=== PATIENT | male | born 1950 | race Caucasian/White ===

== ENCOUNTER 2016-08-13 11:24 | Emergency (ER) | payer OTHER ==
--- NOTE | 2016-08-13 11:56 | ED.PDOC ---
History of Present Illness - General Chief Complaint: Trauma Stated Complaint: Fell out of bed Time Seen by Provider: 08/13/16 11:52 Source: patient, RN notes reviewed, Vital Signs reviewed, family Exam Limitations: no limitations - History of Present Illness Initial Comments: About 4am this morning patient fell out of bed injuring his R face, shoulder, ribs and back. Unsure if he hit the nightstand on the way down. Sister reports he has been acting like himself. No weakness, numbness or tingling. + CALLAHAN R forehead. He had another recent fall with rib and knee injuries. No SOB, or abdominal complaints. Occurred: this morning Severity: moderate Pain Location: head, face, chest, back, lower extremity Method of Injury: fall Improving Factors: rest Worsening Factors: movement Loss of Consciousness: no loss of consciousness Associated Symptoms (Fall): chest pain, headache Allergies/Adverse Reactions: Allergies Sulfa Antibiotics Allergy (Verified 08/13/16 12:22) Home Medications: Ambulatory Orders BuPROPion XL [Wellbutrin XL] 150 mg PO DAILY 08/13/16 DULoxetine HCL [Cymbalta] 60 mg PO DAILY 08/13/16 Diazepam [Valium] 10 mg PO BID 08/13/16 HYDROcodone 10MG/APAP 325MG [Almond 10/325] 1 tab PO Q4HR 08/13/16 Tamsulosin [Flomax] 0.4 mg PO DAILY 08/13/16 traZODone HCL [Desyrel] 200 mg PO DAILY 08/13/16 Review of Systems - Review of Systems Constitutional: States: no symptoms reported EENTM: States: see HPI, nose pain. Denies: eye pain, blurred vision, tearing, double vision, ear pain, ear discharge, nose congestion, throat pain, mouth pain Respiratory: States: no symptoms reported. Denies: cough, short of breath Cardiology: States: chest pain - R side. Denies: palpitations, syncope Gastrointestinal/Abdominal: States: no symptoms reported Genitourinary: States: no symptoms reported Musculoskeletal: States: see HPI Skin: States: other - Abrasion R cheek Neurological: States: headache. Denies: numbness, paresthesia, tingling, tremors, weakness Family Medical History - Family History Grandparents Family History: Unknown Physical Exam - Physical Exam General Appearance: Alert, Comfortable, No apparent distress, Unkempt, Well Hydrated, Well Nourished Head Injury: ecchymosis - R forehead., swelling - R forehead, tenderness - R forehead Eye Exam: bilateral normal ENT Exam: hearing grossly normal, no dental injury, other - swelling, tenderness with large abrasion over R cheek, No TMJ tenderness but tender along R jawline. No limitation of jaw movement, Ears - cerumen impaction Neck Exam: non-tender, full range of motion, normal alignment, normal inspection Cardiovascular/Respiratory: regular rate, rhythm, no M/R/G, no JVD, normal breath sounds, no respiratory distress, other - R lateral/posterior rib tenderness Gastrointestinal/Abdominal: normal bowel sounds, non tender, soft, no organomegaly, no pulsatile mass Back Exam: normal inspection, no CVA tenderness, no vertebral tenderness Extremity Exam: pelvis stable, pain with movement - R shoulder but no pain to palpation with fair ROM Neurologic: tube bender hand II-XII nml as tested, no motor/sensory deficits, alert, normal mood/affect, oriented x 3 Skin Exam: other - Numerous bruises in various stages of healing - Tea Coma Score Best Eye Response (Tea): (4) open spontaneously Best Verbal Response (Tea): (5) oriented Best Motor Response (Linda): (6) obeys commands Tea Total: 15 Progress - EKG/XRAY/CT XRAY: Ribs: R 10th rib fx, minimally displaced o/w nl per Radiologist Xray Comments: R shoulder: normal per Radiologist CT Ordered: Yes - No facial/orbital/mandibular fractures per Radiologist Departure - Departure Clinical Impression: Abrasion, face without infection Facial contusion Qualifiers: Encounter type: initial encounter Qualified Code(s): S00.83XA - Contusion of other part of head, initial encounter Fracture of rib of right side Qualifiers: Encounter type: initial encounter Rib fracture type: single rib Fracture type: closed Qualified Code(s): S22.31XA - Fracture of one rib, right side, initial encounter for closed fracture Strain of right shoulder Qualifiers: Encounter type: initial encounter Qualified Code(s): S46.911A - Strain of unspecified muscle, fascia and tendon at shoulder and upper arm level, right arm , initial encounter Time of Disposition: 12:40 Disposition: Discharge to Home or Self Care Condition: Good Departure Forms: ED Discharge - Pt. Copy, Patient Portal Self Enrollment Instructions: DI for Rib Fracture, DI for Abrasion, DI for Contusion Diet: resume usual diet Activity: increase activity as tolerated Referrals: Moreno Cevallos MD [Primary Care Provider] - 1-2 Weeks Home Medications: Ambulatory Orders BuPROPion XL [Wellbutrin XL] 150 mg PO DAILY 08/13/16 DULoxetine HCL [Cymbalta] 60 mg PO DAILY 08/13/16 Diazepam [Valium] 10 mg PO BID 08/13/16 HYDROcodone 10MG/APAP 325MG [Almond 10/325] 1 tab PO Q4HR 08/13/16 Tamsulosin [Flomax] 0.4 mg PO DAILY 08/13/16 traZODone HCL [Desyrel] 200 mg PO DAILY 08/13/16
--- NOTE | 2016-08-13 12:24 | RAD ---
EXAM DESCRIPTION: Shoulder,Right 2 or More Views CLINICAL HISTORY: pain s/p fall COMPARISON: None Available. TECHNIQUE: Two views of the right shoulder. FINDINGS: There is good internal and external rotation. There is no fracture or bone lesion. There are no significant degenerative changes observed. IMPRESSION: 1. Normal shoulder. Electronically signed by: Michael Ghotra MD 08/13/2016 12:23 PM CDT
--- NOTE | 2016-08-13 12:26 | RAD ---
EXAM DESCRIPTION: Ribs,Right 3 Views CLINICAL HISTORY: 66 years Male, pain s/p fall COMPARISON: None. FINDINGS: Four views of the right ribs show no evidence of pneumothorax or hemopneumothorax or subcutaneous air. Superiorly the ribs appear intact. A minimally displaced fracture of the right 10th rib posterior laterally is evident without adjacent ninth or 11th rib fractures. IMPRESSION: Fracture of the right 10th rib. Electronically signed by: Michael Ghotra MD 08/13/2016 12:25 PM CDT
--- NOTE | 2016-08-13 12:31 | CT ---
EXAM DESCRIPTION: Orbits CLINICAL HISTORY: 66 years Male, R forehead/ cheek/jaw pain/swelling s/p fall COMPARISON: None. TECHNIQUE: This exam was performed according to our departmental dose-optimization program, which includes automated exposure control, adjustment of the mA and/or kV according to patient size and/or use of iterative reconstruction technique. Noncontrast imaging of the orbital and facial structures with MPR reformatted images obtained FINDINGS: The patient is either dentulous with dentures noted in place. The mandible appears intact. The zygomatic arches and the visualized paranasal sinuses appear intact. Soft tissue swelling in the right frontal region without injury to the right frontal bone or right frontal sinus is noted. No evidence of right or left of blowout fracture is evident. The intraorbital soft tissue structures appear normal bilaterally. Incidental note at the C1 level is spina bifida occulta of the posterior ring of C1 without evidence of acute fracture. The nasal bone appears intact. The odontoid and upper cervical spine is otherwise unremarkable. No evidence of mandibular injury is noted. Contusion and soft tissue swelling over the right cheek and maxillary region is present without underlying fracture. IMPRESSION: 1. Soft tissue swelling and contusion in the right frontal and right cheek and zygomatic arch region without underlying fracture. 2. Intact orbital rims and orbits without blowout fracture or mandibular or zygomatic arch injury. 3. Incidental note of spina bifida occulta of the posterior ring of C1, an anatomic variant. Electronically signed by: Michael Ghotra MD 08/13/2016 12:31 PM CDT
[2016-08-13 14:29] VITALS: BP 156/101; TEMP 98.4; O2SAT 94
== END 2016-08-13 13:05 | disposition home or self-care (01) ==
LOC: ER 11:24
DX: S00.83XA Contusion of other part of head, initial encounter (principal); S22.31XA Fracture of one rib, right side, initial encounter for closed fracture; S46.911A Strain of unspecified muscle, fascia and tendon at shoulder and upper arm level, right arm, initial encounter; S00.81XA Abrasion of other part of head, initial encounter; Z88.2 Allergy status to sulfonamides; Z79.899 Other long term (current) drug therapy; W06.XXXA Fall from bed, initial encounter